=== PATIENT | female | born 1950 | race Caucasian/White ===

== ENCOUNTER → 2020-12-03 14:01 | Outpatient (CLI) | payer MEDICARE, SELFPAY ==
--- NOTE | 2020-12-03 | DI.CT.S_ITS ---
PROCEDURE: CT LE LT W CON INDICATIONS: unspecified subluxation of left patella TECHNIQUE: Noncontrast 1-1.5 mm axial sections acquired from the mid-patella to the proximal tibia, with coronal and sagittal reformats. COMPARISON: [facility] [place], CR, XR KNEE 4+ VIEWS LEFT, 11/25/2020, 11:25. FINDINGS: Image quality: Excellent. Bones: Diffuse osteopenia. Scattered degenerative spurring and subchondral sclerosis. No fracture or focal osseous destruction. Chondrocalcinosis is noted. There is severe narrowing of the patellofemoral joint space. Trace joint effusion. 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 Bulky osteophyte formation. Chondrocalcinosis. Trace joint effusion and loose body as above. Dictated by: Arthur Augustin M.D. on 12/03/2020 at 15:18 Approved by: Arthur Augustin M.D. on 12/03/2020 at 15:22
== END ==
PROVIDERS: PCP Internal Medicine; Referring Provider Orthopaedic Surgery; Visit Provider Orthopaedic Surgery
DX: M17.12 Unilateral primary osteoarthritis, left knee (principal); M11.262 Other chondrocalcinosis, left knee; M25.462 Effusion, left knee
CPT/HCPCS: 73700

== ENCOUNTER → 2021-10-26 09:28 | Outpatient (CLI) | payer MEDICARE, SELFPAY ==
--- NOTE | 2021-10-26 | DI.MRI.S_ITS ---
PROCEDURE: MR KNEE RT WO CON INDICATIONS: Unilateral primary osteoarthritis, right knee TECHNIQUE: Noncontrast sagittal PD fast spin echo and T2 fast spin echo with fat saturation, sagittal 3-D FLASH with fat saturation; coronal T1 spin echo and PD fast spin echo with fat saturation, and axial PD fast spin echo with fat saturation through the knee. COMPARISON: [facility] [place], CR, XR KNEE ARTHRITIC SERIES BI, 06/11/2021, 9:29. FINDINGS: Image quality: Excellent. Anterior Cruciate Ligament: Intact. Posterior Cruciate Ligament: Intact. Medial Collateral Ligament: Intact. Lateral Collateral Ligament: Intact. Medial Meniscus: There is intrasubstance degeneration and mild undersurface tearing involving the body and posterior horn of the medial meniscus. Lateral Meniscus: Radial tear is seen at the junction of the posterior horn and body of the lateral meniscus. Additional horizontal oblique component is seen at the meniscal body extending to the middle third of the femoral articular surface. A horizontal oblique component is also seen in the posterior horn extending to the tibial articular surface. Medial and Lateral Tendons: The semimembranosus tendon insertions and meniscocapsular junction appear intact. Visualized portions of the pes anserinus tendons appear normal. No abnormal bursal fluid. The long and short heads of the biceps femoris tendon appear intact. The popliteus tendon demonstrates insertional tendinosis. No signs of posterolateral corner injury. Iliotibial band appears normal. Anterior Structures: The quadriceps and patellar tendons appear intact. There is borderline patella saira. A mildly shallow trochlear groove is seen without patellar subluxation. Trace edema is seen at the superolateral aspect of Hoffa's fat pad, which can be seen in the setting of lateral femoral condyle-patellar tendon friction syndrome. Bones: No acute trabecular bone injury or fracture. Medial Femorotibial Cartilage: Focal high-grade and possibly full-thickness cartilage loss is seen in the central weight-bearing portion of the medial femoral condyle with mild adjacent cartilage delamination. There is mild cartilage thinning in the remaining portions of the medial compartment with small marginal osteophytes. Lateral Femorotibial Cartilage: Full-thickness cartilage loss is seen in the posterior to far posterior portions of the lateral femoral condyle as well as in the central to posterior portion of the lateral tibial plateau. Surrounding subchondral edema is seen with marginal osteophyte formation. Patellofemoral Cartilage: Full-thickness cartilage loss is seen in the inferior portion of the lateral facet and median ridge of the patella superimposed on moderate to high-grade generalized cartilage thinning throughout the anterior compartment. Soft Tissues: Moderate joint effusion. Trace medial popliteal cyst. No medial popliteal cyst. The musculature surrounding the knee is normal in bulk. IMPRESSION: 1. Complex tearing of the lateral meniscus with a full-thickness radial component at the junction of the posterior horn and body as well as worse on oblique component at the adjacent portions of the body and posterior horn. 2. Intrasubstance degeneration and additionally 1st tearing involving the body and posterior horn of the medial meniscus. 3. Tricompartmental osteoarthrosis is most severe in the lateral compartment where there is large areas of full-thickness cartilage loss with subchondral edema. 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 4. Borderline patella saira. Trace edema at the superolateral aspect of Hoffa's fat pad can be seen in the setting of lateral femoral condyle-patellar tendon friction syndrome. 5. Moderate joint effusion. Dictated by: Juarez Hough M.D. on 10/26/2021 at 11:59 Approved by: Juarez Hough M.D. on 10/26/2021 at 12:09
== END ==
PROVIDERS: PCP Internal Medicine; Referring Provider Orthopaedic Surgery; Visit Provider Orthopaedic Surgery
DX: S83.271A Complex tear of lateral meniscus, current injury, right knee, initial encounter (principal); S83.241A Other tear of medial meniscus, current injury, right knee, initial encounter; M17.11 Unilateral primary osteoarthritis, right knee; M25.461 Effusion, right knee
CPT/HCPCS: 73721

== ENCOUNTER → 2021-12-23 11:27 | Outpatient (CLI) | payer MEDICARE, SELFPAY ==
[2021-12-23 12:22] LABS: Add Manual Diff / Slide Review NO; Basophils Absolute Auto 0 /uL (0-100); Basophils Percent Auto 0.5 % (0-2); Eosinophils Absolute Auto 100 /uL (0-450); Eosinophils Percent Auto 1.7 % (2-4); Hematocrit 36.5 % (36-46); Hemoglobin 12.6 g/dL (12.0-16.0); Hemoglobin A1C% w Est Avg Glu 5.6 % (4.0-6.0); Lymphocytes Absolute Auto 1400 /uL (1100-4500); Lymphocytes Percent Auto 36.8 % (25-40); Mean Corpuscular HGB Conc 34.6 % (30-36); Mean Corpuscular Hemoglobin 31.3 PG (26-34); Mean Corpuscular Volume 90.2 fL (80-100); Monocytes Absolute Auto 300 /uL (0-900); Monocytes Percent Auto 6.8 % (3-14); Neutrophils Absolute Auto 2000 /uL (1500-7000); Neutrophils Percent Auto 54.2 % (50-75); Platelet Count 280 X10^3/uL (150-400); Red Blood Cell Count 4.04 X10^6/uL (4.0-5.2); Red Cell Distribution Width 13.2 % (11.6-14.8); White Blood Cell Count 3.7 X10^3/uL (4.5-11.0)
[2021-12-23 13:04] LABS: BUN Creatinine Ratio 22.2 (6-22); Blood Urea Nitrogen 16 mg/dL (7-17); Calcium 9.7 mg/dL (8.4-10.2); Carbon Dioxide 29 mmol/L (22-32); Chloride 99 mmol/L (98-107); Estimated Glomerular Filt Rate > 60 mL/min (>60); Glucose 84 mg/dL (80-110); HEMOLYSIS < 15 (0-50); Potassium 4.5 mmol/L (3.4-5.1); Sodium 134 mmol/L (137-145)
[2021-12-23 14:01] LABS: Appearance Urine UA CLEAR; Bilirubin Urine UA NEGATIVE (NEGATIVE); Color Urine UA YELLOW; Glucose Urine UA NEGATIVE (Negative); Ketones Urine UA NEGATIVE (NEGATIVE); Leukocyte Esterase Urine UA TRACE (NEGATIVE); Nitrite Urine UA NEGATIVE (Negative); Occult Blood Urine UA NEGATIVE (Negative); Protein Urine UA NEGATIVE (Negative); Specific Gravity Urine UA <=1.005 (1.000-1.035); Urobilinogen Urine UA 0.2 E.U./dL (0.2)
[2021-12-23 14:39] LABS: Bacteria Urine Occasional (0-1); Culture Indicated Urine Cult Not Indicated; RBC Urine 0-1/HPF (0-5/HPF); Squamous Epithelial Cell Urine None Seen (0-5/HPF); WBC Urine None Seen (0-5/HPF)
== END ==
PROVIDERS: PCP Internal Medicine; Referring Provider Orthopaedic Surgery; Visit Provider Orthopaedic Surgery
DX: Z01.818 Encounter for other preprocedural examination (principal); R73.9 Hyperglycemia, unspecified; Z01.812 Encounter for preprocedural laboratory examination; N39.0 Urinary tract infection, site not specified
CPT/HCPCS: 36415; 80048; 81001; 83036; 85025; 93005; 93010